=== PATIENT | male | born 1970 | race Hispanic/Latino ===

== ENCOUNTER 2017-01-06 23:35 | Emergency (ER) | payer OTHER ==
[~2017-01-06] VITALS: Ht 167.6 cm; Wt 96.2 kg
[~2017-01-06 23:35] MED LIST: ACTOS30 M1 PO; ADVAIR 250-501 EACH INH; ADVAIR DISKU 11 UNIT INH; AMLODIPINE BESY10 M1 PO; ATRIPLA 600 MG-1 TAB PO; ATRIPLA TAB PO; AUGMENTIN 875-1 EACH PO; CEFTIN500 M1 PO; CIPRO500 M1 PO; CLEOCIN HCL300 M1 PO; DIVALPROEX SOD250 M2 PO; DOXYCYCLINE MO100 MG PO; FLEXERIL10 MG PO; FLOMAX0.4 M1 PO; FLUCONAZOLE100 M1 PO; GLUCOSE TEST S1 EACH; HYDROXYZINE PAM25 MG PO; JANUVIA100 M1 PO; KEFLEX250 M1 PO; KEFLEX500 M1 PO; KLONOPIN0.5 M1 PO; LEVEMIR100 UNIT/1 SC; LISINOPRIL10 MG PO; LISINOPRIL20 M1 PO; LOPRESSOR50 M1 PO; MACROBID 100 M100 MG PO; MAGIC MOUTH WASH PO; MEDROL4 M1 PO; MEGACE ES625 MG/5 M PO; METFORMIN HCL1000 M1 PO; METFORMIN HCL500 MG PO; METFORMIN HCL850 M1 PO; METFORMIN1000 MG PO; NEXIUM 40MG40 MG PO; NYSTATIN100000 UNI PO; ODEFSEY TABLET1 EACH PO; ONDANSETRON HYDR4 MG PO; PANTOPRAZOLE SO40 MG PO; PERCOCET 325 MG1 TA2 PO; PROAIR HFA8.5 GM INH; PROTONIX40 M3 PO; ROBAXIN 500MG500 MG PO; SEROQUEL XR400 M1 PO; TOUJEO SOL300 UNIT/1 SC; TRIUMEQ TABLET1 EACH PO; TYLENOL #31 TAB PO; VALTREX1 GM PO; VISTARIL25 MG PO; VISTARIL50 MG PO; ZOCOR20 M1 PO; ZOFRAN 4 MG TABL4 MG PO; ZOFRAN4 M2 PO; glucometer
--- NOTE | 2017-01-06 23:59 | ED GENERAL ADULT ---
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 -- S.Hooper 02/24/16 shellfish derived (Severe, ANAPHALACTIC 01/07/17) Penicillins (Intermediate, ITCHING 01/07/17) Reconcile Medications Albuterol Sulfate (Proair Hfa) 0.09 MG/Actuation LOYDA 2 PUFF INH Q4-6 PRN BREATHING (Reported) Amlodipine Besylate 10 MG TABLET 1 TAB PO DAILY htn (Reported) Blood Sugar Diagnostic (Glucose Test Strip) 1 EACH STRIP 1 STR NA TID DIABETES Clonazepam (Klonopin) 0.5 MG TABLET 2 TAB PO QHS anxiety (Reported) Divalproex Sodium 250 MG TABLET.DR 2 TAB PO DAILY mood stabilizer (Reported) Emtricitab/Rilpiviri/Tenof Ala (Odefsey Tablet) 200 MG-25 MG-25 MG TABLET 1 TAB PO DAILY ANTIVIRAL (Reported) FLUTICASONE/SALMETEROL (Advair 250-50 Diskus) 1 DSK DSK 1 PUFF INH BID COPD ( Reported) Insulin Glargine,Hum.rec.anlog (Toutolu Solgauriar) 300 UNIT/ML (1.5 ML) INSULN.PEN 10 UNITS SC BEDTIME DIABETES (Reported) Lisinopril 20 MG TABLET 1 TAB PO DAILY HTN Metformin HCl 850 MG TABLET 850 MG PO 0800,1700 DIABETES MELLITUS Metoprolol Tartrate (Lopressor) 50 MG TABLET 1 TAB PO BID htn (Reported) Nystatin 100,000 UNIT/ML ORAL.SUSP 5 ML PO 4 TIMES/DAY ANTIFUNGAL (Reported) Pantoprazole Sodium (Protonix) 40 MG TABLET.DR 1 TAB PO PRN PRN GERD ( Reported) Pioglitazone HCl (Actos) 30 MG TABLET 30 MG PO DAILY DIABETES Quetiapine Fumarate (Seroquel XR) 400 MG TAB.ER.24H 1 TAB PO QHS SLEEP ( Reported) Simvastatin (Zocor*) 20 MG TABLET 1 TAB PO DAILY CHOLESTROL (Reported) Sitagliptin Phosphate (Januvia) 100 MG TABLET 100 MG PO DAILY DIABETES Triage Nurses Notes Reviewed? yes Onset: Gradual Duration: day(s): Timing: recent history Injury Environment: home Severity: moderate Modifying Factors: Improves With: rest. Associated Symptoms: cough HPI: 46 yo gentleman with well controlled HIV by report, presents with fever, chills, nausea, vomiting, diarrhea x 2 days. He notes occasional cough without sputum. He is tolerating fluids. Past History Medical History Any Pertinent Medical History? 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 No Review of Systems Review of Systems Constitutional: Reports: no symptoms. EENTM: Reports: no symptoms. Respiratory: Reports: no symptoms. Cardiovascular: Reports: no symptoms. GI: Reports: no symptoms. Genitourinary: Reports: no symptoms. Musculoskeletal: Reports: no symptoms. Skin: Reports: no symptoms. Neurological/Psychological: Reports: no symptoms. Hematologic/Endocrine: Reports: no symptoms. Immunologic/Allergic: Reports: no symptoms. All Other Systems: Reviewed and Negative Physical Exam Physical Exam General Appearance: well developed/nourished, mild distress Head: atraumatic, normal appearance Eyes: Bilateral: normal appearance. Ears, Nose, Throat: normal pharynx, normal ENT inspection Neck: normal inspection, supple, full range of motion Respiratory: normal breath sounds, chest non-tender, no respiratory distress, quiet respiration, lungs clear Cardiovascular: regular rate/rhythm Gastrointestinal: normal bowel sounds, soft, no organomegaly, diffuse tenderness at left flank, no rebound. no guarding. mild right sided flank tenderness. Back: normal inspection, normal range of motion Extremities: normal inspection, normal capillary refill, normal range of motion, no edema Neurologic/Psych: no motor/sensory deficits, awake, alert, oriented x 3 Skin: intact, normal color, warm/dry Core Measures ACS in differential dx? No CVA/TIA Diagnosis: No Severe Sepsis Present: No Septic Shock Present: No Progress Differential Diagnoses I considered the following diagnoses in my evaluation of the patient: pneumonia, diverticulitis, viral syndrome vs other. Plan of Care: Orders Procedure Date/time Status Add-on Test (ER Only) 01/075 Active Add-on Test (ER Only) 01/07 0153 Active LIPASE 01/07 45 Active HEPATIC FUNCTION PANEL 01/07 45 Active BASIC METABOLIC PANEL 01/07 45 Active AMYLASE 01/07 45 Active RAPID VIRAL INFLUENZA A 01/07 002 Complete TROPONIN LEVEL 01/07 002 Active CBC WITHOUT DIFFERENTIAL 01/07 002 Complete EKG 01/07 0018 Active Laboratory Tests 01/07/17 0045: Sodium Pending, Potassium Pending, Chloride Pending, Carbon Dioxide Pending, Anion Gap Pending, BUN Pending, Creatinine Pending, BUN/Creatinine Ratio Pending , Glucose Pending, Calcium Pending, Total Bilirubin Pending, Direct Bilirubin Pending, AST Pending, ALT Pending, Alkaline Phosphatase Pending, Troponin I < 0.01, Total Protein Pending, Albumin Pending, Amylase Pending, Lipase Pending, CBC w Diff NO MAN DIFF REQ, RBC 4.43 L, MCV 93.0, MCH 31.9 H, RDW 13.1, MPV 10.0, Gran % 80.3 H, Lymphocytes % 9.8 L, Monocytes % 9.8 H, Eosinophils % 0, Basophils % 0.1, Absolute Granulocytes 7.4 H, Absolute Lymphocytes 0.9 L, Absolute Monocytes 0.9 H, Absolute Eosinophils 0, Absolute Basophils 0, PUBS MCHC 34.3 Microbiology 01/07 45 NASOPHARYN: Influenza Virus A & B Rapid Smear - COMP Diagnostic Imaging: Viewed by Me: Radiology Read, CT Scan. Discussed w/RAD: Radiology Read, CT Scan. CXR Impression: no acute abnormality, no infiltrates, normal size heart, normal mediastinum, low lung volumes Initial ED EKG: normal axis, normal intervals, normal p-waves, normal QRS complex, normal sinus rhythm Comments: PATIENT: AMENA RONQUILLO PRESENT AGE: 46 PATIENT ACCOUNT NO: [id number] : 70 LOCATION: [facility] ORDERING PHYSICIAN: JOYCE GREER MD SERVICE DATE: 01/07/17 EXAM TYPE: RAD - XRY-CHEST XRAY, PA AND LATERAL EXAMINATION: XR CHEST CLINICAL INFORMATION: Fever and cough. COMPARISON: Chest radiograph 08/29/2016. TECHNIQUE: 2 views of the chest were obtained. FINDINGS: Lung volumes are low and there is hilar vascular crowding. No overt consolidative disease or effusion. No pneumothorax. The cardiac silhouette and upper mediastinal contours are normal. No acute osseous finding. IMPRESSION: Low lung volumes. No consolidative disease or effusion. DICTATED BY: DILIA PALOMO MD DATE/TIME DICTATED:01/07/17136 GROOVER OPERATOR:EDGAR DATE/TIME TRANSCRIBED:01/07/17136 CONFIDENTIAL, DO NOT COPY WITHOUT APPROPRIATE AUTHORIZATION. <Electronically signed in Other Vendor System> SIGNED BY: DILIA PALOMO MD 01/07 0148 Departure Departure Disposition: STILL A PATIENT Condition: Stable Clinical Impression Primary Impression: Fever Referrals: EDDY BOLIVAR MD (PCP/Family) Departure Forms: Customer Survey General Discharge Information Critical Care Note Critical Care Note Critical Care Time: non-applicable
[2017-01-07 01:17] LABS: ABSOLUTE BASOPHIL COUNT 0 /CUMM (0.0-0.2); ABSOLUTE EOSINOPHIL COUNT 0 /CUMM (0.0-0.7); ABSOLUTE GRANULOCYTE CT 7.4 /CUMM (1.4-6.5); ABSOLUTE LYMPH COUNT 0.9 /CUMM (1.2-3.4); ABSOLUTE MONOCYTE COUNT 0.9 /CUMM (0.10-0.60); BASOPHIL % 0.1 % (0.0-2.0); EOSINOPHIL % 0 % (0-5); HEMATOCRIT 41.2 % (42-52); MEAN CORPUSCULAR HGB 31.9 PG (27.0-31.0); MEAN CORPUSCULAR HGB CONC 34.3 G/DL (33.0-37.0); PLATELET COUNT 170 /CUMM (130-400); RBC DISTRIBUTION WIDTH 13.1 % (11.5-14.5); RED BLOOD CELL CT 4.43 /CUMM (4.70-6.10); WHITE BLOOD CELL COUNT 9.3 /CUMM (4.8-10.8)
[2017-01-07 01:19] LABS: GRANULOCYTE % 80.3 % (42.2-75.2)
--- NOTE | 2017-01-07 01:48 | RADIOLOGY REPORT ---
EXAMINATION: XR CHEST CLINICAL INFORMATION: Fever and cough. COMPARISON: Chest radiograph 08/29/2016. TECHNIQUE: 2 views of the chest were obtained. FINDINGS: Lung volumes are low and there is hilar vascular crowding. No overt consolidative disease or effusion. No pneumothorax. The cardiac silhouette and upper mediastinal contours are normal. No acute osseous finding. IMPRESSION: Low lung volumes. No consolidative disease or effusion.
--- NOTE | 2017-01-07 02:14 | CT SCAN REPORT ---
EXAMINATION: CT ABDOMEN AND PELVIS WITHOUT CONTRAST CLINICAL INFORMATION: Nausea, vomiting, and diarrhea. Abdominal pain. COMPARISON: CT scan of the abdomen and pelvis 08/28/2016. TECHNIQUE: Multidetector volumetric imaging was performed from the superior aspect of the liver through the pubic symphysis. Sagittal and coronal reformatted images were obtained on the technologist's workstation. DLP: 749.65 mGy-cm FINDINGS: LUNG BASES: There is minimal bibasilar subsegmental atelectasis. No pleural or pericardial effusion. LIVER, GALLBLADDER, AND BILIARY TREE: The unenhanced liver is normal in size, shape, and attenuation. No focal hepatic lesion is present. The gallbladder is unremarkable with no evidence of radiopaque gallstones, gallbladder wall thickening, or obvious pericholecystic inflammatory changes. PANCREAS: Unremarkable. SPLEEN: Unremarkable. ADRENAL GLANDS: Unremarkable. KIDNEYS AND URETERS: The kidneys are normal in size, shape, and attenuation. No hydronephrosis, hydroureter, or calculi seen. No perinephric stranding. BLADDER: Unremarkable. GASTROINTESTINAL TRACT: The small and large bowel are unremarkable. The appendix is not definitively visualized. There are no abnormal inflammatory changes within the right lower quadrant to suggest the presence of acute appendicitis. There is no free intraperitoneal air or fluid. ABDOMINAL WALL: There is a small fat-containing inguinal hernia. Abdominal wall is otherwise intact. LYMPH NODES: A few scattered nonspecific mesenteric lymph nodes are visualized primarily within the right lower quadrant near the terminal ileum. VASCULAR: The unenhanced abdominal aorta and inferior vena cava are unremarkable. PELVIC VISCERA: The prostate gland is unremarkable. There is no perirectal or presacral inflammation. OSSEOUS STRUCTURES: There is no worrisome lytic or blastic osseous lesion. No acute fracture. Spinal alignment is maintained. IMPRESSION: There are a few scattered nonspecific mesenteric lymph nodes primarily within the right lower quadrant which may represent a manifestation of mesenteric adenitis. Otherwise unremarkable noncontrast examination.
[2017-01-07] MEDS ORDERED: ZOFRAN ODT4 M1 SL (02:46)
[2017-01-07] MEDS ORDERED: LOMOTIL 2.5-0.1 EACH PO (02:46)
[2017-01-07 04:25] VITALS: BP 140/88
[2017-01-08] MEDS ORDERED: DIVALPROEX SOD500 M2 PO (22:01)
[2017-01-08] MEDS ORDERED: ATORVASTATIN CA40 M1 PO (22:02)
== END 2017-01-07 04:32 | disposition still patient (30) ==
LOC: ERH 23:35
PROVIDERS: Pediatrics
DX: B34.9 Viral infection, unspecified (principal); K52.9 Noninfective gastroenteritis and colitis, unspecified; R50.9 Fever, unspecified; R06.00 Dyspnea, unspecified
CPT/HCPCS: 74176; 87804; 87804-59; 93005; 93010; 96374; 96375; J1885; J2405

== ENCOUNTER 2017-01-08 21:11 | Emergency (ER) | payer OTHER ==
[~2017-01-08] VITALS: Ht 167.6 cm; Wt 96.2 kg
[~2017-01-08 21:11] MED LIST changes: +LOMOTIL 2.5-0.1 EACH PO; +ZOFRAN ODT4 M1 SL
--- NOTE | 2017-01-08 21:55 | ED GI/GU/ABDOMINAL COMPLAINT ---
See Addendum History of Present Illness General Chief Complaint: General Adult Stated Complaint: FEVER STOMACH PAIN Source: patient, old records Exam Limitations: no limitations Vital Signs & Intake/Output Vital Signs & Intake/Output Vital Signs Date Time Temp Pulse Resp B/P Pulse O2 O2 Flow FiO2 Ox Delivery Rate 01/09 030 100.9 118 20 144/89 98 01/09 0013 99.0 95 20 140/69 96 01/08 2121 102.6 126 20 144/102 94 Room Air ED Intake and Output 01/09 0000 01/08 1200 Intake Total 1100 Output Total Balance 1100 Intake, IV 1100 Patient 212 lb Weight Allergies Coded Allergies: morphine (Severe, HIVES, ITCHING, THROAT CLOSING 01/07/17) Per 2nb nurse Ina: throat closing reaction to morphine. -- Pieter.Hooper 02/24/16 shellfish derived (Severe, ANAPHALACTIC 01/07/17) Penicillins (Intermediate, ITCHING 01/07/17) Reconcile Medications Albuterol Sulfate (Proair Hfa) 90 MCG HFA.AER.AD 2 PUF INH Q4-6 PRN PRN RESPIRATORY (Reported) Amlodipine Besylate 10 MG TABLET 1 TAB PO DAILY htn (Reported) Atorvastatin Calcium 40 MG TABLET 1 TAB PO DAILY CHOLESTEROL (Reported) Clonazepam (Klonopin) 0.5 MG TABLET 2 TAB PO QHS anxiety (Reported) Diphenoxylate HCl/Atropine (Lomotil 2.5-0.025 MG Tablet) 2.5 MG-0.025 MG TABLET 1 TAB PO 4 TIMES/DAY PRN diarrhea twenty...[id number] Divalproex Sodium 500 MG TABLET.DR 1 TAB PO BID MENTAL HEALTH (Reported) Emtricitab/Rilpiviri/Tenof Ala (Odefsey Tablet) 200 MG-25 MG-25 MG TABLET 1 TAB PO DAILY ANTIVIRAL (Reported) Fluticasone/Salmeterol (Advair 250-50 Diskus) 250 MCG-50 MCG/DOSE BLST.W.DEV 1 PUF INH BID COPD (Reported) Insulin Glargine,Hum.rec.anlog (Kayode Salter) 300 UNIT/ML (1.5 ML) INSULN.PEN 6 UNITS SC BEDTIME DIABETES (Reported) Lisinopril 20 MG TABLET 1 TAB PO DAILY HTN Metoprolol Tartrate (Lopressor) 50 MG TABLET 1 TAB PO BID htn (Reported) Ondansetron (Zofran Odt) 4 MG TAB.RAPDIS 1 TAB SL TID PRN nausea/vomiting Ondansetron (Zofran Odt) 4 MG TAB.RAPDIS 1 TAB SL TID PRN nausea Pantoprazole Sodium (Protonix) 40 MG TABLET.DR 1 TAB PO PRN PRN GERD ( Reported) Pioglitazone HCl (Actos) 30 MG TABLET 30 MG PO DAILY DIABETES Quetiapine Fumarate (Seroquel XR) 400 MG TAB.ER.24H 1 TAB PO QHS SLEEP ( Reported) Sitagliptin Phosphate (Januvia) 100 MG TABLET 100 MG PO DAILY DIABETES Triage Note: RECEIVED 46 YO MALE HERE LAST NIGHT FOR N/V/D AND FEVER, CT SCAN DONE LAST NIGHT, PT WAS SEEN BY DR GREER. PT RETURNS TODAY WITH ABDOMINAL CRAMPS, DIARRHEA, SOME NAUSEA. PT REPORTS EVERYTHING IS GOING RIGHT THROUGH HIM. PT DRINKING LOTS OF FLUIDS. Triage Nurses Notes Reviewed? yes Onset: Abrupt Duration: day(s): (2), constant Timing: recent history Quality/Severity: aching, cramping Severity Numbers: 6 Location: generalized abdomen Radiation: no radiation Activities at Onset: none Prior Abdominal Problems: similar symptoms No Modifying Factors: none Associated Symptoms: diarrhea, nausea/vomiting HPI: 46-year-old male presents emergency room with history of HIV hypertension complaining of a 2 day history of nausea vomiting diarrhea and generalized crampy abdominal pain. He was seen here last night for similar symptoms diagnosed with mesenteric adenitis. The patient reports positive fever chills still, and states no matter what he is been drinking the fluids are going right through him. He denies any black or bloody stools. Has not taken any thing for pain, his last dose of ibuprofen was earlier today. He denies any sick contacts chest pain shortness of breath cough. Negative flu swab last night. Patient denies tobacco or alcohol use no other modifying factors. no urinary sx (MALIK DYKES) Past History Travel History Traveled to [place] past 21 day No Medical History Any Pertinent Medical History? 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 No (MALIK DYKES) Review of Systems Review of Systems Constitutional: Reports: see HPI. All Other Systems: Reviewed and Negative Comments Review of systems: See HPI, All other systems negative. Constitutional, no chills fever, no malaise HEENT: no sore throat no congestion, no ear pain Cardiovascular: No chest pain , no palpitation , no orthopnea no ankle swelling Skin, no jaundice no rashes, no change in skin Respiratory: No dyspnea no cough no sputum GI: nausea vomiting, diarrhea, no bloating/constipation : No dysuria No hematuria, no frequency, Muscle skeletal: No joint pain, no joint swelling, no back pain, no neck pain, Neurologic: no headache Psych: No stress Heme/endocrine: No bruising no bleeding Immunology: No lymphadenopathy (MALIK DYKES) Physical Exam Physical Exam General Appearance: well developed/nourished, no apparent distress, alert, awake Gastrointestinal: normal bowel sounds, soft, non-tender Comments: Well-developed well-nourished person in no acute distress HEENT: Normal EENT exam; PERRL, EOMI, HEAD is atraumatic. moist mucous membranes. Neck: Supple, normal range of motion Back: Nontender, no CVA tenderness. Full range of motion Cardiovascular: Regular rate and rhythms no murmurs rubs Respiratory: No respiratory distress. Patient speaking in full complete sentences. Breath sounds clear to auscultation bilaterally: NO W/R/R Abdomen: Soft, nontender nondistended, no appreciable organomegaly. Normal bowel sounds. No rebound/guarding, No appreciable enlargement of the abdominal aorta, No ascites. Extremity: No edema, full range of motion of extremities Neuro: Alert oriented x3, motor sensory normal, There were no obvious focal neurologic abnormalities. Skin: No appreciable rash on exposed skin, skin is warm and dry. Psych: Mood and affect is normal, memory and judgment is normal. Core Measures ACS in differential dx? No Severe Sepsis Present: No Septic Shock Present: No (MALIK DYKES) Progress Differential Diagnosis: biliary colic, bowel obstruction, colon cancer, diverticulitis, ischemic bowel, inflamm bowel dis, pancreatitis, peptic ulcer, PUD/GERD, dehydration Plan of Care: Orders Procedure Date/time Status Add-on Test (ER Only) 01/09 2324 Active BLOOD CULTURE 01/08 2315 Active LACTIC ACID 01/08 2146 Complete Saline Lock 01/09 2140 Active COMPREHENSIVE METABOLIC PANEL 01/09 2140 Complete CBC WITHOUT DIFFERENTIAL 01/09 2140 Complete Laboratory Tests 01/09/17 0215: Lactic Acid Cancelled 01/08/172314: Lactic Acid Cancelled 01/08/172145: Anion Gap 11, Estimated GFR 44 L, BUN/Creatinine Ratio 9.4, Glucose 137 H, Lactic Acid 1.3, Calcium 8.5, Total Bilirubin 0.7, AST 29, ALT 44, Alkaline Phosphatase 59, Total Protein 7.1, Albumin 3.7, Globulin 3.4, Albumin/Globulin Ratio 1.1, CBC w Diff MAN DIFF ORDERED, RBC 4.34 L, MCV 94.0, MCH 31.2 H, RDW 13.0, MPV 8.8, Gran % 38.5 L, Lymphocytes % 34.4, Monocytes % 26.6 H, Eosinophils % 0.3, Basophils % 0.2, Absolute Granulocytes 2.4, Segmented Neutrophils 9 L, Band Neutrophils 21 H, Absolute Lymphocytes 2.2, Lymphocytes 42, Monocytes 28 H, Absolute Monocytes 1.7 H, Absolute Eosinophils 0, Absolute Basophils 0, Platelet Estimate ADEQUATE, Normal RBC Morphology N, PUBS MCHC 33.2 Microbiology 01/08 2335 BLOOD: Blood Culture - RECD 01/08 2315 BLOOD: Blood Culture - RECD Old records from last night reviewed, patient's creatinine was at baseline last night. CAT scan reviewed IV fluids Tylenol IV ordered Zofran 4 IV and Bentyl 40 by mouth, patient has had no episodes of diarrhea or vomiting here in the department ct abd/pelvis 01/07 IMPRESSION: There are a few scattered nonspecific mesenteric lymph nodes primarily within the right lower quadrant which may represent a manifestation of mesenteric adenitis. Otherwise unremarkable noncontrast examination. cxr 01/07: IMPRESSION: Low lung volumes. No consolidative disease or effusion. DICTATED BY: DEWEY KENNEDY,DILIA Tavares DATE/TIME DICTATED:01/07/17136 VISITOR INFORMATION ASSISTANT:EDGAR DATE/TIME TRANSCRIBED:01/07/17136/31/2017 11:20:33 PM discussed with the patient at length all his lab results including the bandemia which is new compared to patient's previous visit 24 hours ago. Cultures lactic acid ordered case was discussed with Dr. Carpenter CAT scan with oral contrast ordered 100 case discussed with and signed out to Dr. Johnson pending CAT scan (MALIK DYKES) Diagnostic Imaging: Viewed by Me: CT Scan. Discussed w/RAD: CT Scan. Initial ED EKG: none Hand-Off Endorsed To: CARLITOS JOHNSON MD Endorsed Time: 010 Pending: CT (MALIK DYKES) Radiology Impression: PATIENT: AMENA RONQUILLO PRESENT AGE: 46 PATIENT ACCOUNT NO: [id number] : 70 LOCATION: [facility] ORDERING PHYSICIAN: CARLITOS JOHNSON MD SERVICE DATE: 01/08/17 EXAM TYPE: CAT - CT ABD & PELVIS W/ ORAL CONTRA EXAMINATION: CT ABDOMEN AND PELVIS WITH CONTRAST CLINICAL INFORMATION: Fever and abdominal pain. Vomiting. Elevated band count. COMPARISON: CT scan of the abdomen and pelvis 01/07/2017. TECHNIQUE: Multidetector volumetric imaging was performed from the superior aspect of the liver through the pubic symphysis following administration of oral contrast. Sagittal and coronal reformatted images were obtained on the technologist's workstation. DLP: 1088.3 mGy-cm FINDINGS: LUNG BASES: There is mild bibasilar subsegmental atelectasis. No pleural or pericardial effusion. LIVER, GALLBLADDER , AND BILIARY TREE: The unenhanced liver demonstrates homogeneous attenuation without evidence of a discrete mass. The gallbladder is unremarkable with no evidence of radiopaque gallstones, gallbladder wall thickening, or obvious pericholecystic inflammatory changes. PANCREAS: Unremarkable. SPLEEN: Unremarkable. ADRENAL GLANDS: Unremarkable. KIDNEYS AND URETERS: The kidneys are normal in size, shape, and attenuation. No hydronephrosis, hydroureter, or calculi seen. No perinephric stranding. BLADDER: Unremarkable. GASTROINTESTINAL TRACT: The stomach and small bowel are normal. There is a long segment of circumferential thickening involving the descending colon and sigmoid colon as well as inflammatory changes within the surrounding fat. Although the appendix is not definitively visualized there are no abnormal inflammatory changes at the base of the cecum to suggest acute appendicitis. ABDOMINAL WALL: There is a small umbilical hernia. LYMPH NODES: There are a few scattered nonspecific retroperitoneal lymph nodes, none of which demonstrate pathological enlargement or worrisome enhancement characteristics.. VASCULAR: The unenhanced inferior vena cava and abdominal aorta are unremarkable. PELVIC VISCERA: Unremarkable. OSSEOUS STRUCTURES: There is no worrisome lytic or blastic osseous lesion. IMPRESSION: The diagnostic accuracy of this examination is limited due to the absence of intravenous contrast. There is a long segment of circumferential thickening involving the descending colon and sigmoid colon with associated inflammatory changes within the surrounding fat consistent with infectious or inflammatory colitis. These findings appear to have slightly progressed when compared to recent CT scan of abdomen and pelvis from 01/07/2017. Grossly no evidence of perforation or collection. DICTATED BY: DILIA PALOMO MD DATE/ TIME DICTATED:01/09/17252 VISITOR INFORMATION ASSISTANT:EDGAR DATE/TIME TRANSCRIBED: 01/09/17252 CONFIDENTIAL, DO NOT COPY WITHOUT APPROPRIATE AUTHORIZATION. < Electronically signed in Other Vendor System> SIGNED BY: DILIA PALOMO MD 01/09/17 0305 Comments: 01/09/2017 3:31:05 AM patient signed out to me by CONNER. 01/09/2017 4:22:57 AM I have updated AMENA on his test results. He has tolerated oral Cipro and Flagyl and has been treated with Toradol for pain and fever. He feels ready to go home. (KIRTI KENNEDY,CARLITOS Hill) Departure Departure Condition: Stable Referrals: EDDY BOLIVAR MD (PCP/Family) Departure Forms: Customer Survey General Discharge Information (KIMMIE PRIETO,MALIK) Departure Disposition: HOME OR SELF CARE Clinical Impression Primary Impression: Colitis Additional Instructions: follow up with your pmd on wednesday. as discussed provide stool culture to outpatient lab and bring outpatient lab form with you when bringining in sample. tylenol 650 mg alternating with ibuprofen 600 mg every 3 hours as needed. clear liquids. zofran if needed for nausea. hyocyamine as needed for abdominal cramps. Return if any concerns or sudden worsening. Please note that there might be incidental findings in your evaluation that are unrelated to the current emergency department visit. Please notify your primary care doctor about this emergency department visit in order to obtain and review all of the testing performed so that these incidental findings can be monitored as needed. If you had an x-ray performed, please understand that some fractures may not be seen on the initial set of x-rays. If your symptoms persist you might need a repeat set of x-rays to check for such a fracture. If you had a laceration evaluated, please understand that foreign bodies such as glass or wood may not be visible to the naked eye or on plain x-rays. If the wound becomes red, swollen, increasingly more painful or if there is any drainage from the wound, please have it reevaluated by a physician for the possibility of a retained foreign body. Thank you for choosing the [facility] Emergency Department for your care. It was a pleasure to serve you today. Carlitos Johnson M.D. [facility] Prescriptions: Current Visit Scripts Ciprofloxacin HCl (Cipro) 1 TAB PO BID #14 TAB Metronidazole (Flagyl) 1 TAB PO Q6 #28 TAB Hyoscyamine (Levsin) 1-2 TAB PO Q6P PRN ABDOMINAL CRAMPS #20 TAB Ondansetron (Zofran Odt) 1 TAB SL TID PRN nausea #10 TAB (KIRTI KENNEDY,CARLITOS Hill)
[2017-01-08 21:59] LABS: ABSOLUTE BASOPHIL COUNT 0 /CUMM (0.0-0.2); ABSOLUTE EOSINOPHIL COUNT 0 /CUMM (0.0-0.7); ABSOLUTE GRANULOCYTE CT 2.4 /CUMM (1.4-6.5); ABSOLUTE LYMPH COUNT 2.2 /CUMM (1.2-3.4); ABSOLUTE MONOCYTE COUNT 1.7 /CUMM (0.10-0.60); BASOPHIL % 0.2 % (0.0-2.0); EOSINOPHIL % 0.3 % (0-5); HEMATOCRIT 40.7 % (42-52); MEAN CORPUSCULAR HGB 31.2 PG (27.0-31.0); MEAN CORPUSCULAR HGB CONC 33.2 G/DL (33.0-37.0); MEAN PLATELET VOLUME 8.8 FL (7.4-10.4); PLATELET COUNT 118 /CUMM (130-400); RED BLOOD CELL CT 4.34 /CUMM (4.70-6.10); WHITE BLOOD CELL COUNT 6.3 /CUMM (4.8-10.8)
[2017-01-08] MEDS ORDERED: DIVALPROEX SOD500 M2 PO (22:01)
[2017-01-08] MEDS ORDERED: ATORVASTATIN CA40 M1 PO (22:02)
[2017-01-08 22:47] LABS: GRANULOCYTE % 38.5 % (42.2-75.2)
[2017-01-09] MEDS ORDERED: ZOFRAN ODT4 M1 SL (00:13)
--- NOTE | 2017-01-09 03:05 | CT SCAN REPORT ---
EXAMINATION: CT ABDOMEN AND PELVIS WITH CONTRAST CLINICAL INFORMATION: Fever and abdominal pain. Vomiting. Elevated band count. COMPARISON: CT scan of the abdomen and pelvis 01/07/2017. TECHNIQUE: Multidetector volumetric imaging was performed from the superior aspect of the liver through the pubic symphysis following administration of oral contrast. Sagittal and coronal reformatted images were obtained on the technologist's workstation. DLP: 1088.3 mGy-cm FINDINGS: LUNG BASES: There is mild bibasilar subsegmental atelectasis. No pleural or pericardial effusion. LIVER, GALLBLADDER, AND BILIARY TREE: The unenhanced liver demonstrates homogeneous attenuation without evidence of a discrete mass. The gallbladder is unremarkable with no evidence of radiopaque gallstones, gallbladder wall thickening, or obvious pericholecystic inflammatory changes. PANCREAS: Unremarkable. SPLEEN: Unremarkable. ADRENAL GLANDS: Unremarkable. KIDNEYS AND URETERS: The kidneys are normal in size, shape, and attenuation. No hydronephrosis, hydroureter, or calculi seen. No perinephric stranding. BLADDER: Unremarkable. GASTROINTESTINAL TRACT: The stomach and small bowel are normal. There is a long segment of circumferential thickening involving the descending colon and sigmoid colon as well as inflammatory changes within the surrounding fat. Although the appendix is not definitively visualized there are no abnormal inflammatory changes at the base of the cecum to suggest acute appendicitis. ABDOMINAL WALL: There is a small umbilical hernia. LYMPH NODES: There are a few scattered nonspecific retroperitoneal lymph nodes, none of which demonstrate pathological enlargement or worrisome enhancement characteristics.. VASCULAR: The unenhanced inferior vena cava and abdominal aorta are unremarkable. PELVIC VISCERA: Unremarkable. OSSEOUS STRUCTURES: There is no worrisome lytic or blastic osseous lesion. IMPRESSION: The diagnostic accuracy of this examination is limited due to the absence of intravenous contrast. There is a long segment of circumferential thickening involving the descending colon and sigmoid colon with associated inflammatory changes within the surrounding fat consistent with infectious or inflammatory colitis. These findings appear to have slightly progressed when compared to recent CT scan of abdomen and pelvis from 01/07/2017. Grossly no evidence of perforation or collection.
[2017-01-09] MEDS ORDERED: LEVSIN0.125 M1 PO (04:27)
[2017-01-09] MEDS ORDERED: FLAGYL500 MG PO (04:27)
[2017-01-09] MEDS ORDERED: CIPRO500 M1 PO (04:27)
[2017-01-09 04:39] VITALS: BP 148/98
== END 2017-01-09 04:41 ==
LOC: ERH 21:11
PROVIDERS: Physician Assistant Medical
DX: K52.9 Noninfective gastroenteritis and colitis, unspecified (principal); B20 Human immunodeficiency virus [HIV] disease; R10.84 Generalized abdominal pain; I10 Essential (primary) hypertension
CPT/HCPCS: 74176; 87040; 96374; 96375; J0131; J1885; J2405

== ENCOUNTER 2017-03-04 19:47 | Emergency (ER) | payer OTHER ==
[~2017-03-04] VITALS: Ht 167.6 cm; Wt 100.2 kg
[~2017-03-04 19:47] MED LIST changes: +ATORVASTATIN CA40 M1 PO; +DIVALPROEX SOD500 M2 PO; +FLAGYL500 MG PO; +LEVSIN0.125 M1 PO
--- NOTE | 2017-03-04 20:11 | ED GI/GU/ABDOMINAL COMPLAINT ---
History of Present Illness General Chief Complaint: Male Genitourinary Problems Stated Complaint: BLOOD IN STOOL? X 3 DAYS Source: patient, old records Exam Limitations: no limitations Vital Signs & Intake/Output Vital Signs & Intake/Output Vital Signs Date Time Temp Pulse Resp B/P B/P Pulse O2 O2 Flow FiO2 Mean Ox Delivery Rate 03/04 2005 98.2 80 17 156/89 98 Room Air Room Air Allergies Coded Allergies: morphine (Severe, HIVES, ITCHING, THROAT CLOSING 03/04/17) Per 2nb nurse Ina: throat closing reaction to morphine. -- S.Hooper 02/24/16 shellfish derived (Severe, ANAPHALACTIC 03/04/17) Penicillins (Intermediate, ITCHING 03/04/17) Reconcile Medications Albuterol Sulfate (Proair Hfa) 90 MCG HFA.AER.AD 2 PUF INH Q4-6 PRN PRN RESPIRATORY (Reported) Amlodipine Besylate 10 MG TABLET 1 TAB PO DAILY htn (Reported) Atorvastatin Calcium 40 MG TABLET 1 TAB PO DAILY CHOLESTEROL (Reported) Clonazepam (Klonopin) 0.5 MG TABLET 2 TAB PO QHS anxiety (Reported) Divalproex Sodium 500 MG TABLET. 1 TAB PO BID MENTAL HEALTH (Reported) Emtricitab/Rilpiviri/Tenof Ala (Odefsey Tablet) 200 MG-25 MG-25 MG TABLET 1 TAB PO DAILY ANTIVIRAL (Reported) Fluticasone/Salmeterol (Advair 250-50 Diskus) 250 MCG-50 MCG/DOSE BLST.W.DEV 1 PUF INH BID COPD (Reported) Insulin Glargine,Hum.rec.anlog (Kayode Salter) 300 UNIT/ML (1.5 ML) INSULN.PEN 6 UNITS SC BEDTIME DIABETES (Reported) Lisinopril 20 MG TABLET 1 TAB PO DAILY HTN Metoprolol Tartrate (Lopressor) 50 MG TABLET 1 TAB PO BID htn (Reported) Pantoprazole Sodium (Protonix) 40 MG TABLET. 1 TAB PO PRN PRN GERD ( Reported) Pioglitazone HCl (Actos) 30 MG TABLET 30 MG PO DAILY DIABETES Quetiapine Fumarate (Seroquel XR) 400 MG TAB.ER.24H 1 TAB PO QHS SLEEP ( Reported) Sitagliptin Phosphate (Januvia) 100 MG TABLET 100 MG PO DAILY DIABETES Triage Note: PT BROUGHT DIRECTLY TO RM 21 PT STATES HE HAS HAD BLOOD IN HIS STOOL FOR THREE DAYS AND IT HAS BEEN INCREASING TODAY. PT STATES HE HAS NO ABD PAIN BUT COMPLAINS OF ANAL PAIN. PT DENIES FEVERS. STATES AT TIMES ONLY BLOOD COMES OUT TODAY. PT HAD A DR'S APPOINTMENT TODAY AND WAS SET UP TO F/U WITH GI, BUT FELT WORRIED WITH THE INCREASE IN BLOOD. PT HAS TRIED SUPPOSITORIES, PREP H. Triage Nurses Notes Reviewed? yes HPI: Patient presents with a three-day history of bright red blood per rectum. The patient states that he gets a cramping sensation in the left lower back. This is followed by a bowel movement which she says is bloody with bright red blood. There is blood with no stool and there is blood mixed with the stool. There are no fevers or chills. There is no dysuria. Patient saw his primary care physician today who wants him to see a colorectal surgeon. Patient's last viral load was nondetectable. Patient denies any pain currently. He states he gets the Pain which is followed by the bowel movement but there is no pain when that does not hurt. Past History Travel History Traveled to [place] past 21 day No Medical History Any Pertinent Medical History? 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 No Review of Systems Review of Systems Constitutional: Reports: no symptoms. EENTM: Reports: no symptoms. Respiratory: Reports: no symptoms. Cardiovascular: Reports: no symptoms. GI: Reports: see HPI, abdominal pain, bloody stool. Genitourinary: Reports: no symptoms. Musculoskeletal: Reports: no symptoms. Skin: Reports: no symptoms. Neurological/Psychological: Reports: no symptoms. Hematologic/Endocrine: Reports: no symptoms. Immunologic/Allergic: Reports: no symptoms. All Other Systems: Reviewed and Negative Physical Exam Physical Exam General Appearance: well developed/nourished, alert, awake Head: atraumatic, normal appearance Eyes: Bilateral: PERRL, EOMI. Ears, Nose, Throat, Mouth: hearing grossly normal, moist mucous membrane Neck: normal inspection, supple, full range of motion Respiratory: normal breath sounds, chest non-tender, no respiratory distress, lungs clear Cardiovascular: regular rate/rhythm, normal peripheral pulses Gastrointestinal: normal bowel sounds, soft, non-tender, no organomegaly Rectal: EXTREEM TENDERNESS GOING THROUGH CANAL, LIGHT BROWN STOOL, HEME NEGATIVE , PROSTATE NORMAL TEXTURE AND NONTENDER. Back: normal inspection, normal range of motion Extremities: normal range of motion Neurologic/Psych: no motor/sensory deficits, awake, alert, oriented x 3, normal gait, normal mood/affect Skin: intact, normal color, warm/dry Core Measures ACS in differential dx? No Severe Sepsis Present: No Septic Shock Present: No Progress Differential Diagnosis: colon cancer, diverticulitis, gastritis, hepatitis, ischemic bowel, inflamm bowel dis, HEMORRHOIDS, FISSURE, AVM'S Plan of Care: Orders Procedure Date/time Status PARTIAL THROMBOPLASTIN TIME 03/04 1958 Complete PROTHROMBIN TIME 03/04 1958 Complete COMPREHENSIVE METABOLIC PANEL 03/04 1958 Complete CBC WITHOUT DIFFERENTIAL 03/04 1958 Complete Current Medications Sig/Shakira Start time Last Medication Dose Stop Time Status Admin Sodium Chloride 1,000 ML BOLUS ONE 03/04 2015 AC 03/04 (Normal Saline 0.9%) 03/04 Laboratory Tests 03/04/17 2019: Anion Gap 13, Estimated GFR 50 L, BUN/Creatinine Ratio 11.3, Glucose 434 H, Calcium 9.3, Total Bilirubin 0.5, AST 28, ALT 41, Alkaline Phosphatase 89, Total Protein 7.9, Albumin 4.4, Globulin 3.5, Albumin/Globulin Ratio 1.3, PT 11.3, INR 1.08, APTT 32, CBC w Diff NO MAN DIFF REQ, RBC 4.41 L, MCV 93.7, MCH 31.4 H, RDW 13.6, MPV 9.5, Gran % 45.2, Lymphocytes % 44.3, Monocytes % 9.3, Eosinophils % 0.7, Basophils % 0.5, Absolute Granulocytes 3.1, Absolute Lymphocytes 3.1, Absolute Monocytes 0.6, Absolute Eosinophils 0.1, Absolute Basophils 0, PUBS MCHC 33.5 Diagnostic Imaging: Viewed by Me: CT Scan. Discussed w/RAD: CT Scan. Radiology Impression: PATIENT: AMENA RONQUILLO PRESENT AGE: 46 PATIENT ACCOUNT NO: [id number] : 70 LOCATION: [facility] ORDERING PHYSICIAN: VIJAY SALCEDO MD SERVICE DATE: 03/04/17 EXAM TYPE: CAT - CT ABD & PELVIS W/O IV CONTRAS EXAMINATION: CT ABDOMEN AND PELVIS WITHOUT CONTRAST CLINICAL INFORMATION: Left lower quadrant pain. Right red blood per rectum. COMPARISON: 01/09/2017 TECHNIQUE: Multidetector volumetric imaging was performed from the superior aspect of the liver through the pubic symphysis. Sagittal and coronal reformatted images were obtained on the technologist's workstation. DLP: 647 mGy-cm FINDINGS: LUNG BASES: The visualized lung bases are unremarkable. LIVER, GALLBLADDER, AND BILIARY TREE: The liver is normal in size, shape, and attenuation. No focal hepatic lesion or biliary ductal dilatation is present. The gallbladder is unremarkable with no evidence of radiopaque gallstones, gallbladder wall thickening, or obvious pericholecystic inflammatory changes. PANCREAS: Unremarkable. SPLEEN: Unremarkable. ADRENAL GLANDS: Unremarkable. KIDNEYS AND URETERS: The kidneys are normal in size, shape, and attenuation. No hydronephrosis, hydroureter, or calculi seen. No perinephric stranding. BLADDER: Unremarkable. GASTROINTESTINAL TRACT: The stomach and small bowel are unremarkable. No dilated loops of bowel or evidence of obstruction. No colonic wall thickening or inflammatory change. No free air or free fluid. ABDOMINAL WALL: No significant hernia is appreciated. LYMPH NODES: Normal. VASCULAR: Unremarkable. PELVIC VISCERA: The prostate and seminal vesicles are unremarkable. OSSEOUS STRUCTURES: No acute or suspicious osseous abnormality. IMPRESSION: No acute findings of the abdomen or pelvis. No inflammatory changes. DICTATED BY: ELE ALEXANDER MD DATE/TIME DICTATED:03/04/172034 BREAD MOLDER:EDGAR DATE/TIME TRANSCRIBED:03/04/172034 CONFIDENTIAL, DO NOT COPY WITHOUT APPROPRIATE AUTHORIZATION. <Electronically signed in Other Vendor System> SIGNED BY: ELE ALEXANDER MD 03/04/172040 Initial ED EKG: none Departure Departure Disposition: HOME OR SELF CARE Condition: Stable Clinical Impression Primary Impression: Anal fissure Referrals: ERENDIRA KENNEDY,AIDAN (PCP/Family) Additional Instructions: USE SUPPOSITORIES TWICE A DAY RETURN FOR ANY CONCERNS Departure Forms: Customer Survey General Discharge Information Prescriptions: Current Visit Scripts Anusol Hc (Anusol-Hc) 1 SUP RC BID #[id number] SUP
[2017-03-04 20:28] LABS: ABSOLUTE BASOPHIL COUNT 0 /CUMM (0.0-0.2); ABSOLUTE EOSINOPHIL COUNT 0.1 /CUMM (0.0-0.7); ABSOLUTE GRANULOCYTE CT 3.1 /CUMM (1.4-6.5); ABSOLUTE LYMPH COUNT 3.1 /CUMM (1.2-3.4); ABSOLUTE MONOCYTE COUNT 0.6 /CUMM (0.10-0.60); BASOPHIL % 0.5 % (0.0-2.0); EOSINOPHIL % 0.7 % (0-5); GRANULOCYTE % 45.2 % (42.2-75.2); HEMATOCRIT 41.3 % (42-52); MEAN CORPUSCULAR HGB 31.4 PG (27.0-31.0); MEAN CORPUSCULAR HGB CONC 33.5 G/DL (33.0-37.0); MEAN CORPUSCULAR VOLUME 93.7 FL (80.0-94.0); MEAN PLATELET VOLUME 9.5 FL (7.4-10.4); PLATELET COUNT 140 /CUMM (130-400); RBC DISTRIBUTION WIDTH 13.6 % (11.5-14.5); RED BLOOD CELL CT 4.41 /CUMM (4.70-6.10); WHITE BLOOD CELL COUNT 6.9 /CUMM (4.8-10.8)
[2017-03-04 20:35] LABS: PT 11.3 SEC (9.4-12.5); PTT 32 SEC (25-37)
--- NOTE | 2017-03-04 20:41 | CT SCAN REPORT ---
EXAMINATION: CT ABDOMEN AND PELVIS WITHOUT CONTRAST CLINICAL INFORMATION: Left lower quadrant pain. Right red blood per rectum. COMPARISON: 01/09/2017 TECHNIQUE: Multidetector volumetric imaging was performed from the superior aspect of the liver through the pubic symphysis. Sagittal and coronal reformatted images were obtained on the technologist's workstation. DLP: 647 mGy-cm FINDINGS: LUNG BASES: The visualized lung bases are unremarkable. LIVER, GALLBLADDER, AND BILIARY TREE: The liver is normal in size, shape, and attenuation. No focal hepatic lesion or biliary ductal dilatation is present. The gallbladder is unremarkable with no evidence of radiopaque gallstones, gallbladder wall thickening, or obvious pericholecystic inflammatory changes. PANCREAS: Unremarkable. SPLEEN: Unremarkable. ADRENAL GLANDS: Unremarkable. KIDNEYS AND URETERS: The kidneys are normal in size, shape, and attenuation. No hydronephrosis, hydroureter, or calculi seen. No perinephric stranding. BLADDER: Unremarkable. GASTROINTESTINAL TRACT: The stomach and small bowel are unremarkable. No dilated loops of bowel or evidence of obstruction. No colonic wall thickening or inflammatory change. No free air or free fluid. ABDOMINAL WALL: No significant hernia is appreciated. LYMPH NODES: Normal. VASCULAR: Unremarkable. PELVIC VISCERA: The prostate and seminal vesicles are unremarkable. OSSEOUS STRUCTURES: No acute or suspicious osseous abnormality. IMPRESSION: No acute findings of the abdomen or pelvis. No inflammatory changes.
[2017-03-04] MEDS ORDERED: ANUSOL-HC25 M1 RC (21:13)
[2017-03-04 21:14] VITALS: BP 149/92
== END 2017-03-04 21:26 ==
LOC: ERH 19:47
PROVIDERS: Emergency Medicine
DX: K60.2 Anal fissure, unspecified (principal)
CPT/HCPCS: 74176; 96360

== ENCOUNTER → 2017-11-09 | Day surgery (SDC) | payer OTHER ==
[~2017-11-09] VITALS: Ht 167.6 cm; Wt 106.6 kg
[~2017-11-09] MED LIST changes: +ANUSOL-HC25 M1 RC
--- NOTE | 2017-11-09 09:55 | Operative Report ---
Operative/Inv Procedure Report Surgery Date: 11/09/17 Name of Procedure: CIRCUMCISION Pre-Operative Diagnosis: Phimosis. Balanitis. Post-Operative Diagnosis: Same Estimated Blood Loss: less than 50ml Surgeon/Wire Photo Operator News: Bienvenido March MD Anesthesia: laryngeal mask airway, block Specimens: Foreskin Complications: None Operative/Procedure Note Note: The patient was taken to the operating room and placed on the OR table in supine position. With the patient awake, timeout was performed in order to confirm the patient's identity, procedure, antibiotics, anesthesia, and other pertinent perioperative information. After adequate anesthesia and antibiotics, the patient was then placed frog-legged in supine position. The patient was then draped, and prepped, in the usual surgical fashion with the foreskin retracted as best as possible. Through the phimotic foreskin the glans, and inner precuce was irrigated with Betadine solution. A penile block at the base was performed, using 10ml of 2% lidocaine without epinephrine. A straight clamp was placed on the dorsal portion of the phimotic foreskin avoiding the glans. After waiting 10 minutes, the clamp was removed and the crushed foreskin was then incised using Bovie cautery on a cutting current. At this point when the dorsal slit was made the foreskin was then easily retracted over the glans. A circumferential incision along following the base of the glans/coronal sulcus, using a 15 blade knife was then performed approximately 1-1/2 cm below the coronal sulcus. The incision was carried down to the Burgess's fascia using Bovie cautery, and insuring good hemostasis with spot cauterization. The foreskin was then allowed to retract once again to its anatomic position. A 15 blade knife was used once again to make a circumferential incision on the external foreskin, following the coronal sulcus. This outer foreskin circumferential incision was then extended to the Burgess's fascia, using coag-current on the Bovie, and Spot cauterizing vessels in order to achieve good hemostasis. The excess foreskin sleeve was then transected dorsally using the Bovie cautery. Using a Jessica clamp on on the foreskin sleeve, the foreskin was rolled onto the clamp and simultaneously cauterizing the subcutaneous area over tissue in order to excise the foreskin from the penis. Once this was complete, the penis was copiously irrigated with sterile water, and once again Spot cauterization was performed in order to achieve good hemostasis. With both the inner pink foreskin and penile shaft skin aligned appropriately, the purpose and penile shaft were reapproximated using interrupted 2-0 chromic sutures. Once again the area was copiously irrigated, and gentle pressure was placed on the incision in order to ensure good hemostasis. Bacitracin ointment was copiously applied to the incision, and sterile gauze was wrapped around the incision gently. The patient was then placed in support underwear and transferred to the recovery room in satisfactory condition. The patient tolerated procedure well was discharged home with a course of antibiotics and pain medication. He is to follow up in 2- 4 weeks time for postoperative check. Discharge Disposition: PACU CC: Bienvenido March MD
== END ==
LOC: STS 11-04 07:00
DX: N47.1 Phimosis (principal); N48.1 Balanitis; Z21 Asymptomatic human immunodeficiency virus [HIV] infection status; I10 Essential (primary) hypertension; E11.9 Type 2 diabetes mellitus without complications; Z79.4 Long term (current) use of insulin; J45.909 Unspecified asthma, uncomplicated; R30.0 Dysuria
CPT/HCPCS: 88304; 93005; 93010; J0131; J0690; J2001; J2250

== ENCOUNTER 2018-02-02 08:51 | Emergency (ER) | payer OTHER ==
[~2018-02-02] VITALS: Ht 167.6 cm; Wt 106.6 kg
--- NOTE | 2018-02-02 09:44 | ED GI/GU/ABDOMINAL COMPLAINT ---
History of Present Illness General Chief Complaint: Male Genitourinary Problems Stated Complaint: PT STATES "IM DRIPPING BLD FROM MY PENIS" Source: patient Exam Limitations: no limitations Vital Signs & Intake/Output Vital Signs & Intake/Output Vital Signs Date Time Temp Pulse Resp B/P B/P Pulse O2 O2 Flow FiO2 Mean Ox Delivery Rate 02/02 1129 98.5 83 20 130/82 98 Room Air 02/02 0856 98.2 85 15 145/93 96 Room Air Room Air Allergies Coded Allergies: morphine (Severe, HIVES, ITCHING, THROAT CLOSING 02/02/18) Per 2nb nurse Ina: throat closing reaction to morphine. -- S.Hooper 02/24/16 shellfish derived (Severe, ANAPHALACTIC 02/02/18) Penicillins (Intermediate, ITCHING 02/02/18) Reconcile Medications Albuterol Sulfate (Proair Hfa) 90 MCG HFA.AER.AD 2 PUF INH Q4-6 PRN PRN RESPIRATORY (Reported) Amlodipine Besylate 10 MG TABLET 1 TAB PO DAILY htn (Reported) Atorvastatin Calcium 40 MG TABLET 1 TAB PO DAILY CHOLESTEROL (Reported) Clonazepam (Klonopin) 0.5 MG TABLET 2 TAB PO QHS anxiety (Reported) Divalproex Sodium 500 MG TABLET.DR 1 TAB PO BID MENTAL HEALTH (Reported) Emtricitab/Rilpiviri/Tenof Ala (Odefsey Tablet) 200 MG-25 MG-25 MG TABLET 1 TAB PO DAILY ANTIVIRAL (Reported) Fluticasone/Salmeterol (Advair 250-50 Diskus) 250 MCG-50 MCG/DOSE BLST.W.DEV 1 PUF INH BID COPD (Reported) Insulin Glargine,Hum.rec.anlog (Tosteve Salter) 300 UNIT/ML (1.5 ML) INSULN.PEN 6 UNITS SC BEDTIME DIABETES (Reported) Lisinopril 20 MG TABLET 1 TAB PO DAILY HTN Metoprolol Tartrate (Lopressor) 50 MG TABLET 1 TAB PO BID htn (Reported) Pantoprazole Sodium (Protonix) 40 MG TABLET.DR 1 TAB PO PRN PRN GERD ( Reported) Pioglitazone HCl (Actos) 30 MG TABLET 30 MG PO DAILY DIABETES Quetiapine Fumarate (Seroquel XR) 400 MG TAB.ER.24H 1 TAB PO QHS SLEEP ( Reported) Sitagliptin Phosphate (Januvia) 100 MG TABLET 100 MG PO DAILY DIABETES Triage Note: PT TO ED FOR C/C OF BLOOD IN URINE X 1 WEEK. PT REPORTS PAIN IN BLADDER AREA, BILATERAL FLANK PAIN. REPORTS SOME NAUSEA, NO VOMITING. Triage Nurses Notes Reviewed? yes Onset: Abrupt Duration: day(s): Quality/Severity: burning, sharpness, severe Severity Numbers: 8 Location: left flank, right flank, penis Radiation: back Activities at Onset: urination HPI: 47 year old male with history of HTN, HLD, DM2, HIV, bipolar disease, anixety, multiple historys of kidney stones presents to the emergency room with blood in his urine. He states that he had one episode of blood in his urine last week with a burning, sharp pain that feels like he got cut. He is unsure if he passed a kidney stone. Since that episode he has been having dark urine initially with his urine ending up red. He beleives he may be having another kidney stone as the symptoms are similar to his past episodes. He also has spotting on his underwear in between urinating. He has associated dull, achy, throbbing lower back pain that radiates to his groin. He also endorses subjective fevers. His last kidney stone was two years ago and with previous history of stent placement now removed. He has been staying hydrated and denies feeling thirsty. He had a recent circumcision in October and does not have any complaints. He denies any discharge, bleeding, penile pain, testicular pain, or rashes. His last sexual encounter was a year ago. Past History Travel History Traveled to [place] past 21 day No Medical History Any Pertinent Medical History? 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 No Review of Systems Review of Systems Constitutional: Denies: no symptoms. EENTM: Denies: no symptoms. Respiratory: Denies: no symptoms. Cardiovascular: Denies: no symptoms. GI: Denies: no symptoms. Genitourinary: Reports: see HPI. Musculoskeletal: Denies: no symptoms. Skin: Denies: no symptoms. Neurological/Psychological: Denies: no symptoms. Hematologic/Endocrine: Reports: see HPI. Immunologic/Allergic: Denies: no symptoms. All Other Systems: Reviewed and Negative Physical Exam Physical Exam General Appearance: well developed/nourished, no apparent distress, alert, awake Head: atraumatic, normal appearance Eyes: Bilateral: normal appearance. Ears, Nose, Throat, Mouth: hearing grossly normal Neck: normal inspection, supple, full range of motion Respiratory: normal breath sounds Cardiovascular: regular rate/rhythm Gastrointestinal: normal bowel sounds, suprapubic tenderness Rectal: deferred Male Genitals: normal genitalia Back: CVA tenderness (R), CVA tenderness (L) Neurologic/Psych: no motor/sensory deficits, awake, alert, oriented x 3 Skin: intact Core Measures ACS in differential dx? No Sepsis Present: No Sepsis Focused Exam Completed? No Progress Differential Diagnosis: pyelonephritis, STD, ureterolithiasis, urinary retention , urethritis, UTI/pyelo Plan of Care: Orders Procedure Date/time Status COMPREHENSIVE METABOLIC PANEL 02/02 0943 Complete CBC WITHOUT DIFFERENTIAL 02/02 0943 Complete URINALYSIS 02/02 0859 Complete Laboratory Tests 02/02/18 1145: Urine Color YEL, Urine Clarity CLEAR, Urine pH 6.5, Ur Specific [place] 1.025, Urine Protein NEG, Urine Ketones NEG, Urine Nitrite NEG, Urine Bilirubin NEG, Urine Urobilinogen 0.2, Ur Leukocyte Esterase NEG, Ur Microscopic EXAM NOT REQUIRED, Urine Hemoglobin NEG, Urine Glucose >=1000 H 02/02/18 0950: Anion Gap 12, Estimated GFR 41 L, BUN/Creatinine Ratio 10.0, Glucose 222 H, Calcium 9.6, Total Bilirubin 0.5, AST 28, ALT 28, Alkaline Phosphatase 66, Total Protein 7.2, Albumin 3.9, Globulin 3.3, Albumin/Globulin Ratio 1.2, CBC w Diff NO MAN DIFF REQ, RBC 4.20 L, MCV 96.2 H, MCH 32.9 H, MCHC 34.2, RDW 13.5, MPV 9.6, Gran % 40.8 L, Lymphocytes % 50.0, Monocytes % 8.1, Eosinophils % 0.9, Basophils % 0.2, Absolute Granulocytes 3.4, Absolute Lymphocytes 4.2 H, Absolute Monocytes 0.7 H, Absolute Eosinophils 0.1, Absolute Basophils 0 Diagnostic Imaging: Viewed by Me: Ultrasound. Discussed w/RAD: Ultrasound. Radiology Impression: PATIENT: AMENA RONQUILLO PRESENT AGE: 47 PATIENT ACCOUNT NO: [id number] : 70 LOCATION: [facility] ORDERING PHYSICIAN: Juan PRIETO SERVICE DATE: 02/02/18 EXAM TYPE: US - US -RENAL/KIDNEY EXAMINATION: US RETROPERITONEAL COMPLETE (RENAL) CLINICAL INFORMATION: Back pain. Hematuria.. COMPARISON: CT 03/04/2017 TECHNIQUE: Real- time imaging of the kidneys and bladder. FINDINGS: RIGHT KIDNEY: 9.4 x 5.1 x 5 cm (SAG x AP x TRV). The kidney is normal in size, contour, and echogenicity. Renal cortical thickness is normal. No calculi or focal parenchymal lesions. No hydronephrosis. LEFT KIDNEY: 10.4 x 5.2 x 4.5 cm (SAG x AP x TRV). The kidney is normal in size, contour, and echogenicity. Renal cortical thickness is normal. No calculi or focal parenchymal lesions. No hydronephrosis. BLADDER: Not well distended and therefore not well assessed. Ureteral jets are not seen. IMPRESSION: Unremarkable appearance of the kidneys. The bladder is not well assessed due to underdistention.. DICTATED BY: Jay Spence MD DATE/TIME DICTATED:02/02/181045 HEATER WORKER:EDGAR DATE/TIME TRANSCRIBED:1045 CONFIDENTIAL, DO NOT COPY WITHOUT APPROPRIATE AUTHORIZATION. < Electronically signed in Other Vendor System> SIGNED BY: Jay Spence MD 02/02/18 1055 Initial ED EKG: none Departure Departure Disposition: HOME OR SELF CARE Condition: Stable Clinical Impression Primary Impression: Flank pain Referrals: Alvaro Rebollar MD (PCP/Family) Additional Instructions: Follow-up with urologist and primary care doctor. Return if any concerns worsening symptoms. Please go over all results of today's visit with your primary care doctor. Contact your primary care doctor to let them know you were here in the emergency room. There may be nonspecific findings which may not be related to your visit today here in the emergency room but may require further evaluation and chronic monitoring by your primary care doctor. If you had a laceration today the chance of foreign body always remains. You should follow-up with your primary care doctor for recheck in 3-5 days for a wound check. If you had an x-ray done there is a chance that a fracture could have been missed on initial read and you should follow-up with your primary care doctor for repeat x-rays if symptoms persist. If your blood pressure was elevated here in the emergency room please have rechecked by monserrat primary care doctor within the next 48. If you were prescribed a narcotic here in the emergency room or any type of controlled substances you're not allowed to drive while taking this medication or operate any type of heavy machinery. Narcotics can make you feel lightheaded dizziness nausea and can cause constipation. You may need to picker machine operator a stool softener. Thank you for choosing [facility] emergency room. Please return to the emergency room immediately if you have any other concerns worsening of symptoms. Departure Forms: Customer Survey General Discharge Information Comments 02/02/2018 1:43:22 PM Symptoms are most consistent with renal colic type pain. Currently no blood in urine. Clinically looks well. His creatinine is at a baseline elevated. He needs follow-up with his primary care doctor and urologist. Return if any other concerns. He has no complaints of chest pain or shortness of breath. At this time due to patient having previous CAT scans I do not feel CT scan is necessary at the moment. Short interval follow-up.
[2018-02-02 10:00] LABS: ABSOLUTE BASOPHIL COUNT 0 /CUMM (0.0-0.2); ABSOLUTE EOSINOPHIL COUNT 0.1 /CUMM (0.0-0.7); ABSOLUTE GRANULOCYTE CT 3.4 /CUMM (1.4-6.5); ABSOLUTE LYMPH COUNT 4.2 /CUMM (1.2-3.4); ABSOLUTE MONOCYTE COUNT 0.7 /CUMM (0.10-0.60); BASOPHIL % 0.2 % (0.0-2.0); EOSINOPHIL % 0.9 % (0-5); GRANULOCYTE % 40.8 % (42.2-75.2); HEMATOCRIT 40.5 % (42-52); MEAN CORPUSCULAR HGB 32.9 PG (27.0-31.0); MEAN CORPUSCULAR HGB CONC 34.2 G/DL (33.0-37.0); MEAN CORPUSCULAR VOLUME 96.2 FL (80.0-94.0); MEAN PLATELET VOLUME 9.6 FL (7.4-10.4); RBC DISTRIBUTION WIDTH 13.5 % (11.5-14.5); WHITE BLOOD CELL COUNT 8.4 /CUMM (4.8-10.8)
[2018-02-02 10:32] LABS: PLATELET COUNT 168 /CUMM (130-400)
--- NOTE | 2018-02-02 10:50 | ULTRASOUND REPORT ---
EXAMINATION: US RETROPERITONEAL COMPLETE (RENAL) CLINICAL INFORMATION: Back pain. Hematuria.. COMPARISON: CT 03/04/2017 TECHNIQUE: Real-time imaging of the kidneys and bladder. FINDINGS: RIGHT KIDNEY: 9.4 x 5.1 x 5 cm (SAG x AP x TRV). The kidney is normal in size, contour, and echogenicity. Renal cortical thickness is normal. No calculi or focal parenchymal lesions. No hydronephrosis. LEFT KIDNEY: 10.4 x 5.2 x 4.5 cm (SAG x AP x TRV). The kidney is normal in size, contour, and echogenicity. Renal cortical thickness is normal. No calculi or focal parenchymal lesions. No hydronephrosis. BLADDER: Not well distended and therefore not well assessed. Ureteral jets are not seen. IMPRESSION: Unremarkable appearance of the kidneys. The bladder is not well assessed due to underdistention..
[2018-02-02 11:29] VITALS: BP 130/82
== END 2018-02-02 12:22 ==
LOC: ERH 08:51
PROVIDERS: Physician Assistant Medical
DX: R10.9 Unspecified abdominal pain (principal)
CPT/HCPCS: 76775; 81003; 96372; J1885